=== PATIENT | female | born 1935 | race Caucasian/White ===

== ENCOUNTER 2019-04-06 11:45 | Outpatient (CLI) | payer MEDICARE, OTHER ==
[2019-04-06 15:49] LABS: ALANINE AMINOTRANSFERASE 58 U/L (12-78); ALBUMIN 3.9 g/dL (3.4-5.0); ANION GAP 4 mmol/L (5-15); CALCIUM 9.3 mg/dL (8.5-10.1); CHLORIDE 110 mmol/L (98-107)
[2019-04-06 16:00] LABS: ALKALINE PHOSPHATASE 62 U/L (45-117); BILIRUBIN,TOTAL 0.9 mg/dL (0.2-1.0); CREATININE 1.01 mg/dL (0.55-1.02); TOTAL PROTEIN 7.2 g/dL (6.4-8.2); TRIGLYCERIDES 147 mg/dL (50-200)
[2019-04-06 16:01] LABS: CHOL/HDL RATIO 3.2; CHOLESTEROL, TOTAL 147 mg/dL (140-239); HDL CHOL % 31 % (28-40); HDL CHOLESTEROL (DIRECT) 46 mg/dL (40-60); LDL CHOLESTEROL,CALCULATED 72 mg/dL (54-169); LDL/HDL RATIO 1.6 (0.5-3.0); VLDL CHOLESTEROL 29 mg/dL (0-25)
== END 2019-04-06 23:59 | disposition home or self-care (01) ==
LOC: CFH 11:45
PROVIDERS: ATTEND Physician Assistant
DX: K21.9 Gastro-esophageal reflux disease without esophagitis (principal); R42 Dizziness and giddiness; E21.3 Hyperparathyroidism, unspecified; R60.9 Edema, unspecified; E55.9 Vitamin D deficiency, unspecified; R32 Unspecified urinary incontinence; R79.9 Abnormal finding of blood chemistry, unspecified; I10 Essential (primary) hypertension; N28.9 Disorder of kidney and ureter, unspecified; E78.5 Hyperlipidemia, unspecified; M85.80 Other specified disorders of bone density and structure, unspecified site; M65.312 Trigger thumb, left thumb; Z13.220 Encounter for screening for lipoid disorders; Z12.4 Encounter for screening for malignant neoplasm of cervix; Z12.11 Encounter for screening for malignant neoplasm of colon
CPT/HCPCS: 36415; 80053; 80061; 83970; 84443

== ENCOUNTER → 2019-08-05 | Outpatient (CLI) | payer MEDICARE, OTHER ==
[2019-08-05 15:39] LABS: BASOPHILS # (AUTO) 0.03 x10^3/uL (0-0.1); BASOPHILS % (AUTO) 1 % (0-1); EOSINOPHILS # (AUTO) 0.13 x10^3/uL (0-0.4); EOSINOPHILS % (AUTO) 2 % (1-7); LYMPHOCYTES # (AUTO) 1.31 x10^3/uL (1-3.4); LYMPHOCYTES % (AUTO) 24 % (22-44); MD NO; MEAN CORPUSCULAR HEMOGLOBIN 30.9 pg (27.0-34.8); MEAN CORPUSCULAR HGB CONC 33.1 g/dL (32.4-35.8); MEAN CORPUSCULAR VOLUME 93.4 fL (80-100); MEAN PLATELET VOLUME 9.8 fL (7.4-10.4); MONOCYTES # (AUTO) 0.35 x10^3/uL (0.2-0.8); MONOCYTES % (AUTO) 6 % (2-9); NEUTROPHILS # (AUTO) 3.65 x10^3/uL (1.8-6.8); NEUTROPHILS % (AUTO) 67 % (42-75); PLATELET COUNT 136 x10^3/uL (130-400); RED BLOOD COUNT 5.23 x10^6/uL (3.82-5.3); RED CELL DISTRIBUTION WIDTH 13.4 % (9.6-15.2)
[2019-08-05 15:49] LABS: ALBUMIN 3.7 g/dL (3.4-5.0); ANION GAP 5 mmol/L (5-15); CALCIUM 9.8 mg/dL (8.5-10.1); CHLORIDE 109 mmol/L (98-107); CHOLESTEROL, TOTAL 156 mg/dL (140-239); TRIGLYCERIDES 182 mg/dL (50-200); VLDL CHOLESTEROL 36 mg/dL (0-25)
[2019-08-05 16:18] LABS: ALANINE AMINOTRANSFERASE 52 U/L (12-78); ALKALINE PHOSPHATASE 67 U/L (45-117); BILIRUBIN,TOTAL 0.6 mg/dL (0.2-1.0); CHOL/HDL RATIO 3.7; FOLATE LEVEL 19.7 ng/mL (3.1-17.5); FREE T4 (FREE THYROXINE) 0.99 ng/dL (0.76-1.46); HDL CHOL % 27 % (28-40); HDL CHOLESTEROL (DIRECT) 42 mg/dL (40-60); LDL CHOLESTEROL,CALCULATED 78 mg/dL (54-169); LDL/HDL RATIO 1.9 (0.5-3.0); TOTAL PROTEIN 7.2 g/dL (6.4-8.2)
[2019-08-05 16:20] LABS: MICROSCOPIC AUTO
[2019-08-05 16:22] LABS: CULTURE INDICATED? YES
== END | disposition home or self-care (01) ==
LOC: CFH 11:17
PROVIDERS: ATTEND Nurse Practitioner Primary Care
DX: I10 Essential (primary) hypertension (principal); E55.9 Vitamin D deficiency, unspecified; E78.5 Hyperlipidemia, unspecified; R53.83 Other fatigue; N28.9 Disorder of kidney and ureter, unspecified; M85.80 Other specified disorders of bone density and structure, unspecified site; N32.81 Overactive bladder; R23.4 Changes in skin texture; Z79.899 Other long term (current) drug therapy
CPT/HCPCS: 36415; 80053; 80061; 81001; 82043; 82306; 82607; 82746; 83036; 84207; 84425; 84439; 84443; 84481; 85025; 87086; 87147

== ENCOUNTER → 2019-09-10 | Outpatient (CLI) | payer MEDICARE, OTHER ==
[2019-09-10 16:23] LABS: MICROSCOPIC AUTO
== END | disposition home or self-care (01) ==
LOC: CFH 13:07
PROVIDERS: ATTEND Nurse Practitioner Primary Care
DX: N39.0 Urinary tract infection, site not specified (principal)
CPT/HCPCS: 81001; 87086

== ENCOUNTER 2020-02-12 13:27 | Outpatient (CLI) | payer MEDICARE, OTHER ==
[~2020-02-12 13:27] MED LIST: ALPH300C PO; AMLO-150 PO; ASPI325T17 PO; ATOR40TA78 PO; FAMO40TA61 PO; LOSA100T14 PO; MECL12.581 PO; MIRA25TA PO; MV-M1TAB16 PO; UBID100C41 PO
== END 2020-02-12 23:59 | disposition home or self-care (01) ==
LOC: STAR 13:27
PROVIDERS: ATTEND Anesthesiology
DX: Z02.9 Encounter for administrative examinations, unspecified (principal)
CPT/HCPCS: 36415; 87635

== ENCOUNTER 2020-02-17 09:13 | Observation (INO) | payer MEDICARE, OTHER ==
[~2020-02-17] VITALS: Ht 160 cm; Wt 103.6 kg
[~2020-02-17 09:13] MED LIST changes: +BISACODYL 10 MG SUPP PR PRN; +DIPHENHYDRAMINE 50 MG CAPSULE PO PRN; +EPINEPHRINE 1 MG/ML, 1ML ONE; +HYDROcodone/APAP 5/325 TABLET PO PRN; +HYDROmorphone 1 MG/ML, 1ML INJ IV PRN; +KETOROLAC 60 MG/2 ML ONE; +MAGNESIUM HYDROXIDE 8%, 30ML UDC PO PRN; +MECLIZINE 12.5 MG TABLET PO PRN; +ONDANSETRON 2MG/ML, 2ML IV PRN; +ONDANSETRON 4 MG TABLET PO PRN; +ROPIvacaine/PF 0.5%, 20 ML ONE; +ROPIvacaine/PF 0.5%, 30 ML ONE; +SENNA/DOCUSATE TABLET PO PRN; +SODIUM CHLORIDE 0.9% 50 ML ONE; +TRANEXAMIC ACID 100 MG/ML, 10ML ONE; +VANCOMYCIN 1,000 MG ONE; +ZOLPIDEM 5MG TABLET PO PRN
[2020-02-17] MEDS ORDERED: FENTANYL PF 250 MCG/5ML ONE ×2 (09:34→11:14)
[2020-02-17 09:45] VITALS: BP 125/91
[2020-02-17] MEDS ORDERED: CHLORHEXIDINE 15 ML UDC ONE (09:48)
[2020-02-17] MEDS ORDERED: ACETAMINOPHEN 500 MG TABLET PO ONE (10:00)
[2020-02-17] MEDS ORDERED: GABAPENTIN 300 MG CAPSULE PO ONE (10:00)
[2020-02-17] MEDS ORDERED: LACTATED RINGERS 1,000 ML IV SCH (10:00)
[2020-02-17] MEDS ORDERED: CHLORHEXIDINE 15 ML UDC MM ONE (10:00)
[2020-02-17] MEDS ORDERED: PROPOFOL 10 MG/ML, 20ML ONE (10:49)
[2020-02-17] MEDS ORDERED: DEXAMETHASONE 4 MG/ML, 1ML ONE (10:49)
[2020-02-17] MEDS ORDERED: ONDANSETRON 2MG/ML, 2ML ONE (10:49)
[2020-02-17] MEDS ORDERED: CEFAZOLIN 1,000 MG ONE (10:49)
[2020-02-17] MEDS ORDERED: PROMETHAZINE 25 MG/ML, 1ML ONE (12:35)
[2020-02-17] MEDS ORDERED: HYDROmorphone 1 MG/ML, 1ML INJ ONE (12:36)
[2020-02-17] MEDS: HYDROmorphone 1 MG/ML, 1ML INJ IVPush PRN ×2 (12:36→12:46)
[2020-02-17] MEDS ORDERED: hydrALAzine 20 MG/ML, 1ML IV PRN (13:00)
[2020-02-17] MEDS ORDERED: OXYcodone 5 MG/5 ML ORAL.SOL UDC PO PRN (13:00)
[2020-02-17] MEDS ORDERED: MEPERIDINE/PF 25MG/0.5ML IVPush PRN (13:00)
[2020-02-17] MEDS ORDERED: LABETALOL 5MG/ML, 20ML IV PRN (13:00)
[2020-02-17] MEDS ORDERED: PROMETHAZINE 25 MG/ML, 1ML IVPush PRN (13:00)
[2020-02-17] MEDS ORDERED: FENTANYL PF 100 MCG/2ML IV PRN (13:00)
[2020-02-17] MEDS ORDERED: ONDANSETRON 2MG/ML, 2ML IVPush PRN (13:00)
[2020-02-17] MEDS ORDERED: MEPERIDINE/PF 25MG/ML,1ML ONE (13:03)
[2020-02-17] MEDS: FAMOTIDINE 40 MG TABLET PO SCH (14:41)
[2020-02-17] MEDS: AMLODIPINE 5 MG TABLET PO SCH (14:43)
[2020-02-17] MEDS: LOSARTAN 100 MG TAB PO SCH (14:43)
[2020-02-17] MEDS: DOCUSATE 100 MG CAPSULE PO SCH ×2 (14:43→20:55)
[2020-02-17] MEDS: NS + 20MEQ KCL 1,000 ML IV SCH (14:46)
[2020-02-17] MEDS ORDERED: CEFAZOLIN PMX 2GM/50ML 50 ML IVPB SCH (15:00)
[2020-02-17] MEDS: ASPIRIN 81 MG TABLET EC PO SCH (18:16)
[2020-02-17] MEDS: CEFAZOLIN PMX 2GM/50ML 50 ML IVPB SCH (18:17)
[2020-02-17] MEDS: OXYcodone IR 5MG TABLET PO PRN (18:17)
[2020-02-17 20:17] VITALS: BP 143/77
[2020-02-17] MEDS ORDERED: ATORVASTATIN 40 MG TABLET PO SCH (21:00)
[2020-02-18 00:04] VITALS: BP 140/71
[2020-02-18] MEDS: ACETAMINOPHEN 650 MG/20.3 ML UDC PO PRN ×2 (00:06→04:21)
[2020-02-18] MEDS: OXYcodone IR 5MG TABLET PO PRN ×4 (00:07→12:38)
[2020-02-18] MEDS: CEFAZOLIN PMX 2GM/50ML 50 ML IVPB SCH (02:33)
[2020-02-18] MEDS: NS + 20MEQ KCL 1,000 ML IV SCH (03:30)
[2020-02-18 03:41] VITALS: BP 150/74
[2020-02-18] MEDS ORDERED: DEXAMETHASONE 4 MG/ML, 1ML IVPush SCH (06:00)
[2020-02-18] MEDS: ASPIRIN 81 MG TABLET EC PO SCH (06:08)
[2020-02-18 07:25] VITALS: BP 140/67
[2020-02-18] MEDS: LOSARTAN 100 MG TAB PO SCH (08:26)
[2020-02-18] MEDS: FAMOTIDINE 40 MG TABLET PO SCH (08:26)
[2020-02-18] MEDS: DOCUSATE 100 MG CAPSULE PO SCH (08:26)
[2020-02-18] MEDS: AMLODIPINE 5 MG TABLET PO SCH (08:26)
[2020-02-18 13:14] VITALS: BP 130/82
== END 2020-02-18 13:50 | disposition home or self-care (01) ==
LOC: OUT 09:13 → 3WST 14:00 → OUT 21:31 → 3WST 21:31 → DCLOUNGE 02-18 13:35
PROVIDERS: ADMIT Orthopaedic Surgery; ATTEND Orthopaedic Surgery
DX: M17.12 Unilateral primary osteoarthritis, left knee (principal); Z20.828 Contact with and (suspected) exposure to other viral communicable diseases; I10 Essential (primary) hypertension; E78.5 Hyperlipidemia, unspecified; K21.9 Gastro-esophageal reflux disease without esophagitis; Z96.652 Presence of left artificial knee joint; Z79.82 Long term (current) use of aspirin; Z79.899 Other long term (current) drug therapy
CPT/HCPCS: 27447; 36415; 85014; 85018; 87635; 96361; 96365; 96366; 96375; 97162; 97166; C1713; C1776; G0378; J0171; J0690; J1100; J1170; J1885; J2175; J2405; J2550; J2704; J2795; J3010; J3370; J3480; J7120